=== PATIENT | male | born 1990 | race Caucasian/White ===

== ENCOUNTER 2020-10-06 10:09 | Day surgery (SDC) | payer OTHER ==
[2020-10-06] MEDS ORDERED: Depo-Medrol 40 MG/ML IM ONE (10:10)
[2020-10-06] MEDS ORDERED: BUPIVACAINE 0.5% VIAL IJ ONE (10:10)
[2020-10-06] MEDS ORDERED: Ketamine HCl 50 MG/ML ONE (11:24)
[2020-10-06] MEDS ORDERED: DIPRIVAN 200 MG/20 ML IV ONE (11:24)
--- NOTE | 2020-10-06 12:07 | XRAY ---
Indication: Right hip injection. Intraoperative fluoroscopy was provided for 20 seconds. Single digital spot image submitted for interpretation demonstrates needle tip projecting just lateral to the right femur head. Small amount of contrast injected for needle tip placement. Correlate with intraoperative findings/report.
--- NOTE | 2020-10-06 12:31 | XRAY ---
20 seconds fluoroscopy time in surgery for intra-articular injection of the right hip.
[2020-10-06] MEDS ORDERED: Lactated Ringers 1,000 ML IV ONE (15:15)
== END 2020-10-06 11:50 | disposition home or self-care (01) ==
LOC: SDC-PAIN 10:09
PROVIDERS: ATTEND Psychiatry & Neurology Pain Medicine
DX: M16.11 Unilateral primary osteoarthritis, right hip (principal); J45.909 Unspecified asthma, uncomplicated; F32.9 Major depressive disorder, single episode, unspecified; Z79.899 Other long term (current) drug therapy
CPT/HCPCS: 20610; 73501; 77002; J1030; J2704; Q9966